=== PATIENT | female | born 1965 | race Caucasian/White ===

== ENCOUNTER → 2021-10-21 10:36 | Outpatient (BNVA) | payer SELFPAY | PROVIDERS: Visit Provider Family Medicine | DX: R30.0 Dysuria (principal); H81.10 Benign paroxysmal vertigo, unspecified ear; H81.09 Meniere's disease, unspecified ear; N39.0 Urinary tract infection, site not specified; I10 Essential (primary) hypertension | CPT/HCPCS: 81000 ==

== ENCOUNTER → 2021-12-23 10:29 | Outpatient (BNVA) | payer SELFPAY | PROVIDERS: PCP Nurse Practitioner; Visit Provider Nurse Practitioner | DX: R42 Dizziness and giddiness (principal); R51.9 Headache, unspecified; H81.09 Meniere's disease, unspecified ear | CPT/HCPCS: 80053; 84443; 85025; 86618; 86666; 86757 ==

== ENCOUNTER 2022-04-24 08:53 | Outpatient (CLI) | payer SELFPAY ==
--- NOTE | 2022-04-24 09:00 | CT_ITS ---
WS: [id number] CT HEAD TECHNIQUE: Noncontrast CT of the head obtained from the skullbase to the vertex. CLINICAL INFORMATION: R42 - Dizziness and giddiness COMPARISON: None. DLP: 940.[address] scans at [facility] use at least one of these dose optimization techniques: automated e xposure control; mA and/or kV adjustment per patient size (includes targeted exams where dose is matc hed to clinical indication); or iterative reconstruction. FINDINGS: No evidence of intracranial hemorrhage or mass effect. Ventricular system and basal cisterns are troy nt. No significant parenchymal volume loss. No extra-axial fluid collections. No evidence of mass or mass effect. Normal swain-white differentiation. Paranasal sinuses and mastoid air cells are well aerated. .Normal visualized soft tissues. CT/CT head wo con* [id number] IMPRESSION: 1. No evidence of intracranial hemorrhage or mass effect. 2. Normal swain-white differentiation. 3. No acute intracranial findings.
== END 2022-04-24 08:54 | disposition home or self-care (01) ==
PROVIDERS: PCP Nurse Practitioner; Visit Provider Nurse Practitioner
DX: R42 Dizziness and giddiness (principal)
CPT/HCPCS: 70450

== ENCOUNTER → 2023-01-09 08:57 | Outpatient (BNVA) | payer SELFPAY | PROVIDERS: PCP Nurse Practitioner; Visit Provider Nurse Practitioner Family | DX: H81.10 Benign paroxysmal vertigo, unspecified ear (principal); I10 Essential (primary) hypertension | CPT/HCPCS: 80053; 84443; 85025 ==

== ENCOUNTER → 2023-12-10 08:20 | Outpatient (BNVA) | payer SELFPAY | PROVIDERS: PCP Nurse Practitioner Family; Visit Provider Nurse Practitioner Family | DX: E87.6 Hypokalemia (principal) | CPT/HCPCS: 80053 ==